=== PATIENT | male | born 1935 | race Caucasian/White ===

== ENCOUNTER → 2017-06-29 | Day surgery (SDC) | payer MEDICARE, BC ==
[~2017-06-29] MED LIST: ALEVE PO; AMIODARONE PO; ASPIRIN PO; ASPIRIN81 M2 PO; BABY ASA; CLOPIDOGREL75 MG PO; DICLOFENAC PO; FINASTERIDE5 M1 PO; HCTZ PO; KCL PO; LANTUS100 U/ML SQ; LEVEMIR; LEVEMIR100 U/ML SQ; LISINOPRIL; LISINOPRIL5 MG PO; METFORMIN PO; METOPROLOL SUCC25 MG PO; ROBAXIN500 MG PO; SIMVASTATIN20 MG PO; TAMSULOSIN HCL0.4 MG PO; ZOCOR PO; ZOCOR20 MG; [UNRECOGNIZED DRUG - OTHER]; [UNRECOGNIZED DRUG - REMARK]
--- NOTE | ~2017-06-29 | OR ---
Unit #: [id number] #: [id number] Patient: ARMANDO PAULINO [id number] [place], [place] [address] [id number] O MR#: [id number] NAME: ARMANDO PAULINO ROOM: Date of Procedure: 06/29/2017 Admission Date: 06/29/2017 Surgeon: Wagner De La Garza Jr., M.D. : 1935 Attending Physician: Wagner De La Garza Jr., M.D. Primary Care Physician: Slavador Agustin M.D. OPERATIVE REPORT INDICATIONS FOR PROCEDURE The patient is an 81-year-old white male, who has had no recent colonoscopy. He has been having some intermittent rectal bleeding of unknown etiology. It was felt he needed a colonoscopy. He has had his prep at home. He is brought in for this procedure at his request. He understands the procedure including the risks, including that of perforation and bleeding, and consents. PREOPERATIVE DIAGNOSIS Rectal bleeding. POSTOPERATIVE DIAGNOSES External hemorrhoid with multiple small polyps of the rectum and descending colon, and diverticulosis of the left colon. ANESTHESIA MAC anesthesia. PROCEDURES PERFORMED Flexible colonoscopy to the distal ileum with biopsies of 2 small polyps, one of the descending colon and one of the rectum. DESCRIPTION OF PROCEDURE The patient was positioned in Potter position with left side down. After being given MAC anesthesia, digital rectal examination was performed, which revealed no palpable mass or tenderness. No blood or stool in the rectal ampulla. Prostate was normal by palpation. There was one large external hemorrhoid, which was nonthrombosed and soft and of no major significance. No evidence of any blood related to it. The Olympus colonoscope was advanced through the anal canal up the rectum and retroflexed down to the area of the anorectal region. There were no internal hemorrhoids and no evidence of any fissures. The scope was then straightened and the area of the rectum at approximately 8 cm to 10 cm, there was a small 1 mm or so polyp, which appeared benign. This was biopsied and sent to pathology with one bite with the cold biopsy forceps without bleeding. The scope was then advanced up into the rectosigmoid area. In the sigmoid and descending colon areas, there were multiple diverticula present. At approximately 65 to 70 cm, there was a small additional 1 mm or so benign-appearing polyp, which was likewise removed with one bite with the cold biopsy forceps without bleeding and sent to pathology. The scope was then advanced around the splenic flexure and the transverse colon, around hepatic flexure and ascending colon, down in the Unit #: [id number] #: [id number] Patient: ARMANDO PAULINO area of the cecum. The light from the tip of the scope could be seen transilluminating through right lower quadrant abdominal wall area. The scope was advanced up the distal ileum several inches, there was no evidence of any ileitis or inflammatory bowel disease. The scope was slowly removed. There were no tumors. Except for the 2 small polyps, no other polyps, no cancer, no AVMs. No evidence of any colitis or diverticulitis. The caliber of the colon appeared normal throughout without evidence of narrowing or obstruction. The scope was removed. The patient tolerated the procedure well and discharged in satisfactory condition. Dictated by... Wagner De La Garza Jr., M.Zeferino. CM/pily TD: 06/29/2017 11:02 JOB #: [id number] OPERATIVE REPORT Page 1 of 1 X Wagner De La Garza MD X PROCEDURE OPERATIVE NOTE
== END | disposition home or self-care (01) ==
LOC: COPS 05:45
DX: D12.4 Benign neoplasm of descending colon (principal); K62.1 Rectal polyp; K64.4 Residual hemorrhoidal skin tags; K57.30 Diverticulosis of large intestine without perforation or abscess without bleeding; I25.10 Atherosclerotic heart disease of native coronary artery without angina pectoris; M19.90 Unspecified osteoarthritis, unspecified site; E66.01 Morbid (severe) obesity due to excess calories; E11.9 Type 2 diabetes mellitus without complications; G47.30 Sleep apnea, unspecified; Z87.891 Personal history of nicotine dependence; Z68.34 Body mass index [BMI] 34.0-34.9, adult; Z88.5 Allergy status to narcotic agent; Z88.8 Allergy status to other drugs, medicaments and biological substances; Z79.899 Other long term (current) drug therapy; Z79.4 Long term (current) use of insulin; Z98.41 Cataract extraction status, right eye; Z98.42 Cataract extraction status, left eye; Z95.0 Presence of cardiac pacemaker; Z95.5 Presence of coronary angioplasty implant and graft; Z96.651 Presence of right artificial knee joint; Z98.890 Other specified postprocedural states
CPT/HCPCS: 82947; 88305